=== PATIENT | female | born 1955 | race Caucasian/White ===

== ENCOUNTER 2016-08-28 22:21 | Emergency (ER) | payer OTHER ==
[2016-08-28 23:22] LABS: ABSOLUTE EOSINOPHILS # (AUTO) 0.1 10^3/uL (0.0-0.6); ABSOLUTE LYMPHOCYTES (AUTO) 1.4 10^3/uL (0.5-4.7); ABSOLUTE MONOCYTES (AUTO) 0.8 10^3/uL (0.1-1.4); ABSOLUTE NEUT (AUTO) 3.3 10^3/uL (1.7-8.2); BASOPHILS % (AUTO) 0.5 % (0-2); EOSINOPHILS % (AUTO) 1.8 % (0-6); HEMATOCRIT 40.5 % (36.0-47.0); HEMOGLOBIN 13.6 g/dL (12.0-15.5); HGB HCT DIFFERENCE 0.3; LYMPHOCYTES % (AUTO) 25.2 % (13-45); MEAN CORPUSCULAR HEMOGLOBIN 28.9 pg (27.0-33.4); MEAN CORPUSCULAR HGB CONC 33.7 g/dL (32.0-36.0); MEAN CORPUSCULAR VOLUME 86 fl (80-97); MONOCYTES % (AUTO) 14.2 % (3-13); RED BLOOD COUNT 4.73 10^6/uL (3.72-5.28); RED CELL DISTRIBUTION WIDTH 13.2 % (11.5-14.0); SEGMENTED NEUTROPHILS % (AUTO) 58.3 % (42-78); WHITE BLOOD COUNT 5.7 10^3/uL (4.0-10.5)
[2016-08-28 23:31] LABS: PARTIAL THROMBOPLASTIN TIME 25.8 SEC (23.5-35.8)
[2016-08-28 23:35] LABS: PROTHROMBIN TIME 12.9 SEC (11.4-15.4)
[2016-08-28 23:38] LABS: ALANINE AMINOTRANSFERASE 46 U/L (9-52); ALBUMIN 4.7 g/dL (3.5-5.0); ALKALINE PHOSPHATASE 102 U/L (38-126); ANION GAP 15 (5-19); ASPARTATE AMINO TRANSFERASE 41 U/L (14-36); BILIRUBIN,DIRECT 0.3 mg/dL (0.0-0.4); BILIRUBIN,TOTAL 0.6 mg/dL (0.2-1.3); BLOOD UREA NITROGEN 14 mg/dL (7-20); CARBON DIOXIDE 24 mmol/L (22-30); CHLORIDE 103 mmol/L (98-107); CREATININE RESULT 0.61 mg/dL (0.52-1.25); GLUCOSE 108 mg/dL (75-110); POTASSIUM 3.6 mmol/L (3.6-5.0); SODIUM 142.3 mmol/L (137-145); TOTAL PROTEIN 7.8 g/dL (6.3-8.2)
[2016-08-28 23:53] LABS: CREATINE KINASE MB 2.34 ng/mL (<4.55)
[2016-08-28 23:58] LABS: TROPONIN I < 0.012 ng/mL
--- NOTE | 2016-08-29 00:19 | ER Document Report ---
ED General - General Chief Complaint: Chest Pain > 30 Stated Complaint: HEART RATE ISSUES Time Seen by Provider: 08/28/16 23:15 Notes: Patient is a 60-year-old female with past medical history of hypertension and A. fib status post ablation who presents with an episode of palpitations tonight. She denies any associated symptoms and palpitations. She went to a local EMS station where he EKG apparently showed A. fib with rapid ventricular response. She was given diltiazem by EMS and at time of arrival to the emergency department she is in a normal sinus rhythm without tachycardia. At time of my evaluation she denies any symptoms of any kind. She has not spoken to her primary care or non clinical advisor regarding today's concerns. She has been taking her metoprolol as directed. She has not noted anything seems to trigger tonight's episode and denies any increased alcohol or caffeine use. States she did have one glass of wine tonight. TRAVEL OUTSIDE OF THE [place] IN LAST 30 DAYS: No - Related Data Allergies/Adverse Reactions: No Known Allergies Allergy (Verified 08/28/16 23:10) Past Medical History - General Information source: Patient - Social History Smoking Status: Never Smoker Chew tobacco use (# tins/day): No Frequency of alcohol use: Social Drug Abuse: None Lives with: Spouse/Significant other Family History: Reviewed & Not Pertinent Patient has suicidal ideation: No Patient has homicidal ideation: No - Past Medical History Cardiac Medical History: Reports: Hx Hypertension Renal/ Medical History: Denies: Hx Peritoneal Dialysis Past Surgical History: Reports: Hx Cardiac Surgery - ABLATION, Hx Hysterectomy - Immunizations Hx Diphtheria, Pertussis, Tetanus Vaccination: No Review of Systems - Review of Systems Notes: Constitutional: Negative for fever. HENT: Negative for sore throat. Eyes: Negative for visual changes. Cardiovascular: Negative for chest pain. Respiratory: Negative for shortness of breath. Gastrointestinal: Negative for abdominal pain, vomiting or diarrhea. Genitourinary: Negative for dysuria. Musculoskeletal: Negative for back pain. Skin: Negative for rash. Neurological: Negative for headaches, weakness or numbness. 10 point ROS negative except as marked above and in HPI. Physical Exam - Vital signs Vitals: Temp Pulse Resp BP Pulse Ox 98.7 F 82 16 138/80 H 100 08/28/16 22:25 08/28/16 22:25 08/28/16 22:25 08/28/16 22:25 08/28/16 22:25 Interpretation: Normal Notes: PHYSICAL EXAMINATION: GENERAL: Well-appearing, well-nourished and in no acute distress. HEAD: Atraumatic, normocephalic. EYES: Pupils equal round and reactive to light, extraocular movements intact, sclera anicteric, conjunctiva are normal. ENT: nares patent, oropharynx clear without exudates. Moist mucous membranes. NECK: Normal range of motion, supple without lymphadenopathy LUNGS: Breath sounds clear to auscultation bilaterally and equal. No wheezes rales or rhonchi. HEART: Regular rate and rhythm without murmurs ABDOMEN: Soft, nontender, normoactive bowel sounds. No guarding, no rebound. No masses appreciated. EXTREMITIES: Normal range of motion, no pitting or edema. No cyanosis. NEUROLOGICAL: No focal neurological deficits. Moves all extremities spontaneously and on command. PSYCH: Normal mood, normal affect. SKIN: Warm, Dry, normal turgor, no rashes or lesions noted. Course - Re-evaluation Re-evalutation: 08/29/16 00:36 Patient presents with an apparent episode of paroxysmal atrial fibrillation that is now resolved. At time of my assessment she has no symptoms whatsoever and has a normal sinus rhythm without tachycardia or need for rate control. Diltiazem drip was arrival was immediately discontinued and she was monitored for 2 hours off the drip without recurrence of A. fib or tachycardia. Labs were sent and do not demonstrate any abnormality in her troponin is negative. I do not clearly suspect ACS as the etiology of her presentation today did not believe serial troponins are indicated. I have given her symptoms of oral metoprolol here in the emergency department and have encouraged her to resume her standard medications in the morning. I have also encouraged her to contact her later clinical documentation developer and non clinical advisor regarding today's concerns.At this time will discharge with return precautions and follow-up recommendations. Verbal discharge instructions given a the bedside and opportunity for questions given. Medication warnings reviewed. Patient is in agreement with this plan and has verbalized understanding of return precautions and the need for primary care follow-up in the next 24-72 hours. - Vital Signs Vital signs: Temp Pulse Resp BP Pulse Ox 98.7 F 82 16 119/62 97 08/28/16 22:25 08/28/16 22:25 08/28/16 22:25 08/29/16 00:01 08/29/16 00:01 - Laboratory Result Diagrams: 08/28/16 22:45 08/28/16 22:45 Laboratory results interpreted by me: 08/28/16 08/28/16 22:45 22:45 Monocytes % 14.2 H AST 41 H - Diagnostic Test Radiology reviewed: Image reviewed, Reports reviewed Radiology results interpreted by me: 08/29/16 00:45 Chest x-ray: No infiltrate or pneumothorax - EKG Interpretation by Me Additional EKG results interpreted by me: 08/29/16 00:45 Normal sinus rhythm. Rate 76. No ST elevations or depressions. QTC is 422. Discharge - Discharge Clinical Impression: Paroxysmal atrial fibrillation Condition: Good Disposition: HOME, SELF-CARE Additional Instructions: Please continue to take your beta blockers and aspirin as prescribed. Please contact your non clinical advisor in the morning for follow-up regarding your episode of A. fib today that has since resolved. Please return to the emergency department immediately if you develop recurrence or palpitations, chest pain, pass out, have shortness of breath, or any other symptoms that are worrisome to you. Forms: Return to Work
[2016-08-29] MEDS ORDERED: METOPROLOL TARTRATE 25 MG TABLET PO ONE (00:36)
[2016-08-29 00:48] VITALS: BP 108/67
--- NOTE | 2016-08-29 17:18 | EKG REPORT ---
SEVERITY:- NORMAL ECG - SINUS RHYTHM : Confirmed by: Kathy Stubbs MD 29-Aug-2016 09:11:00
== END 2016-08-29 01:06 | disposition home or self-care (01) ==
LOC: ER 22:21
DX: I48.0 Paroxysmal atrial fibrillation (principal); I10 Essential (primary) hypertension; Z98.890 Other specified postprocedural states; Z79.899 Other long term (current) drug therapy
CPT/HCPCS: 36415; 71010; 80053; 82553; 84484; 85025; 85610; 85730; 93005; 93010; 99285

== ENCOUNTER 2016-10-07 15:20 | Emergency (ER) | payer OTHER ==
--- NOTE | 2016-10-07 16:24 | ER Document Report ---
ED Medical Screen (RME) - General Chief Complaint: Arrhythmia Stated Complaint: POSSIBLE ELEVATED HR Time Seen by Provider: 10/07/16 16:14 TRAVEL OUTSIDE OF THE [place] IN LAST 30 DAYS: No - HPI Notes: 10/07/16 16:24 Atrial fibrillation - Related Data Allergies/Adverse Reactions: No Known Allergies Allergy (Verified 08/28/16 23:10) Past Medical History - Past Medical History Cardiac Medical History: Reports: Hx Atrial Fibrillation, Hx Hypertension Renal/ Medical History: Denies: Hx Peritoneal Dialysis Past Surgical History: Reports: Hx Cardiac Surgery - ABLATION, Hx Hysterectomy - Immunizations Hx Diphtheria, Pertussis, Tetanus Vaccination: No Review of Systems - Review of Systems Constitutional: Other - Atrial fibrillation Physical Exam - Vital signs Vitals: Temp Pulse Resp BP Pulse Ox 98.4 F 150 H 20 164/101 H 20 L 10/07/16 15:39 10/07/16 15:39 10/07/16 15:39 10/07/16 15:39 10/07/16 15:39 - Respiratory Respiratory status: No respiratory distress Chest status: Nontender Breath sounds: Normal Chest palpation: Normal Course - Vital Signs Vital signs: Temp Pulse Resp BP Pulse Ox 98.4 F 150 H 20 164/101 H 20 L 10/07/16 15:39 10/07/16 15:39 10/07/16 15:39 10/07/16 15:39 10/07/16 15:39
[2016-10-07 16:34] LABS: ABSOLUTE BASOPHILS # (AUTO) 0.1 10^3/uL (0.0-0.2); ABSOLUTE EOSINOPHILS # (AUTO) 0.1 10^3/uL (0.0-0.6); ABSOLUTE LYMPHOCYTES (AUTO) 1.8 10^3/uL (0.5-4.7); ABSOLUTE MONOCYTES (AUTO) 0.9 10^3/uL (0.1-1.4); ABSOLUTE NEUT (AUTO) 4.4 10^3/uL (1.7-8.2); BASOPHILS % (AUTO) 0.7 % (0-2); EOSINOPHILS % (AUTO) 0.8 % (0-6); HEMATOCRIT 43.1 % (36.0-47.0); HEMOGLOBIN 14.4 g/dL (12.0-15.5); HGB HCT DIFFERENCE 0.1; LYMPHOCYTES % (AUTO) 24.9 % (13-45); MEAN CORPUSCULAR HGB CONC 33.4 g/dL (32.0-36.0); MEAN CORPUSCULAR VOLUME 87 fl (80-97); MONOCYTES % (AUTO) 12.3 % (3-13); RED BLOOD COUNT 4.96 10^6/uL (3.72-5.28); RED CELL DISTRIBUTION WIDTH 13.3 % (11.5-14.0); SEGMENTED NEUTROPHILS % (AUTO) 61.3 % (42-78); WHITE BLOOD COUNT 7.2 10^3/uL (4.0-10.5)
[2016-10-07 16:38] LABS: PROTHROMBIN TIME 13.7 SEC (11.4-15.4)
--- NOTE | 2016-10-07 16:43 | ER Document Report ---
ED Cardiac - General Chief Complaint: Arrhythmia Stated Complaint: POSSIBLE ELEVATED HR Time Seen by Provider: 10/07/16 16:14 Mode of Arrival: Ambulatory Information source: Patient TRAVEL OUTSIDE OF THE [place] IN LAST 30 DAYS: No - HPI Patient complains to provider of: Palpitations, Shortness of breath Use of: Caffeine - 1 COFFEE THIS A.M.. 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 denies: Diabetes, Smoker, Hx CHF, Hx [place] Positive cardiac history: Yes Associated symptoms: Shortness of breath Exacerbated by: Denies Relieved by: Nothing Similar symptoms previously: Yes - PAROXYSMAL A. FIB. W/RVR Recently seen / treated by doctor: Yes - LAST MONTH - Related Data Allergies/Adverse Reactions: No Known Allergies Allergy (Verified 08/28/16 23:10) Past Medical History - General Information source: Patient - Social History Smoking Status: Never Smoker Cigarette use (# per day): No Chew tobacco use (# tins/day): No Frequency of alcohol use: Occasional Drug Abuse: None Lives with: Family Family History: Reviewed & Not Pertinent Patient has suicidal ideation: No Patient has homicidal ideation: No - Past Medical History Cardiac Medical History: Reports: Hx Atrial Fibrillation, Hx Hypertension Pulmonary Medical History: Reports: None EENT Medical History: Reports: None Neurological Medical History: Reports: None Endocrine Medical History: Reports: None Renal/ Medical History: Reports: None. Denies: Hx Peritoneal Dialysis Malignancy Medical History: Reports: None GI Medical History: Reports: None Musculoskeltal Medical History: Reports None Psychiatric Medical History: Reports: None Past Surgical History: Reports: Hx Cardiac Surgery - ABLATION, Hx Hysterectomy - Immunizations Hx Diphtheria, Pertussis, Tetanus Vaccination: No Review of Systems - Review of Systems Constitutional: No symptoms reported EENT: No symptoms reported Cardiovascular: See HPI Respiratory: See HPI Gastrointestinal: No symptoms reported Genitourinary: No symptoms reported Musculoskeletal: No symptoms reported Skin: No symptoms reported Neurological/Psychological: No symptoms reported Physical Exam - Vital signs Vitals: Temp Pulse Resp BP Pulse Ox 98.4 F 150 H 20 164/101 H 20 L 10/07/16 15:39 10/07/16 15:39 10/07/16 15:39 10/07/16 15:39 10/07/16 15:39 Interpretation: Hypertensive, Tachycardic - General General appearance: Appears well, Alert, Anxious In distress: None - HEENT Head: Normocephalic Eyes: Normal Conjunctiva: Normal Ears: Normal Nasal: Normal Mouth/Lips: Normal Mucous membranes: Normal Pharynx: Normal Neck: Normal. No: Thyromegally - Respiratory Respiratory status: No respiratory distress Breath sounds: Normal - Cardiovascular Rhythm: Regular - ARRHYTHMIA HAD CONVERTED SPONTANEOUSLY BY TIME OF M.D. EXAM. Heart sounds: Normal auscultation Murmur: No - Abdominal Inspection: Normal Distension: No distension - Back Back: Normal - Extremities General upper extremity: Normal inspection General lower extremity: Normal inspection - Neurological Neuro grossly intact: Yes Cognition: Normal Orientation: AAOx4 - Psychological Associated symptoms: Normal affect, Normal mood - Skin Skin Temperature: Warm Skin Moisture: Dry Skin Color: Normal Skin Turgor: Elastic Course - Re-evaluation Re-evalutation: 10/07/16 17:52 Patient's arrhythmia converted spontaneously shortly after her arrival to the emergency department. Repeat EKG shows returned to normal sinus rhythm with a normal rate. - Vital Signs Vital signs: Temp Pulse Resp BP Pulse Ox 98.4 F 150 H 12 180/148 H 98 10/07/16 15:39 10/07/16 15:39 10/07/16 17:01 10/07/16 17:01 10/07/16 17:01 - Laboratory Result Diagrams: 10/07/16 16:15 10/07/16 16:15 Laboratory results interpreted by me: 10/07/16 16:15 Carbon Dioxide 21 L AST 42 H Alkaline Phosphatase 128 H Creatine Kinase 281 H Total Protein 8.5 H Albumin 5.1 H - EKG Interpretation by Mn EKG shows normal: abnormal: Sinus rhythm, ST-T Waves - REPOL. ABNL., RATE- RELATED Rate: Tachycardia Rhythm: A.Fib, PVC's, APC's [place]/QRS: Right axis deviation Discharge - Discharge Clinical Impression: Tachycardia Atrial fibrillation Qualifiers: Atrial fibrillation type: paroxysmal Qualified Code(s): I48.0 - Paroxysmal atrial fibrillation Condition: Stable Disposition: HOME, SELF-CARE Instructions: Atrial Fibrillation ([facility]), Beta Blockers ([facility]) Additional Instructions: AVOID ALL STIMULANTS, INCLUDING CAFFEINE. INCREASE YOUR METOPROLOL TO 25 mg TWICE A DAY. CONTINUE YOUR OTHER MEDS USUAL. FOLLOW UP WITH YOUR [facility] DISPLAY BUILDER, CALL TOMORROW FOR APPT. RETURN TO E.R. IF PROBLEMS, ANY TIME.
[2016-10-07 16:54] LABS: ALANINE AMINOTRANSFERASE 49 U/L (9-52); ALBUMIN 5.1 g/dL (3.5-5.0); ALKALINE PHOSPHATASE 128 U/L (38-126); ANION GAP 15 (5-19); ASPARTATE AMINO TRANSFERASE 42 U/L (14-36); BILIRUBIN,DIRECT 0.3 mg/dL (0.0-0.4); BILIRUBIN,TOTAL 0.8 mg/dL (0.2-1.3); BLOOD UREA NITROGEN 17 mg/dL (7-20); CALCIUM 10.2 mg/dL (8.4-10.2); CARBON DIOXIDE 21 mmol/L (22-30); CHLORIDE 105 mmol/L (98-107); CREATINE KINASE 281 U/L (30-135); CREATININE RESULT 0.65 mg/dL (0.52-1.25); GLUCOSE 109 mg/dL (75-110); SODIUM 141.4 mmol/L (137-145); TOTAL PROTEIN 8.5 g/dL (6.3-8.2)
[2016-10-07 17:06] LABS: CREATINE KINASE MB 2.71 ng/mL (<4.55)
--- NOTE | 2016-10-07 17:06 | RADIOLOGY REPORT (SQ) ---
EXAM DESCRIPTION: CHEST SINGLE VIEW COMPLETED DATE/TIME: 10/07/2016 4:49 pm REASON FOR STUDY: chest pain COMPARISON: 08/28/2016 EXAM PARAMETERS: NUMBER OF VIEWS: One view. TECHNIQUE: Single frontal radiographic view of the chest acquired. RADIATION DOSE: NA LIMITATIONS: None. FINDINGS: LUNGS AND PLEURA: No opacities, masses or pneumothorax. No pleural effusion. MEDIASTINUM AND HILAR STRUCTURES: No masses. Contour normal. HEART AND VASCULAR STRUCTURES: Heart normal in size. Normal vasculature. BONES: No acute findings. HARDWARE: None in the chest. OTHER: No other significant finding. IMPRESSION: NO ACUTE RADIOGRAPHIC FINDING IN THE CHEST. TECHNICAL DOCUMENTATION: JOB ID: [id number]
[2016-10-07 17:16] LABS: TROPONIN I < 0.012 ng/mL
[2016-10-07] MEDS ORDERED: METOPROLOL SUCCINATE 25 MG TAB.SR.24H PO ONE (17:47)
[2016-10-07 18:11] VITALS: BP 148/83
--- NOTE | 2016-10-07 22:42 | EKG REPORT ---
SEVERITY:- NORMAL ECG - SINUS RHYTHM : Confirmed by: Meme Solorzano 07-Oct-2016 22:42:04
--- NOTE | 2016-10-07 22:43 | EKG REPORT ---
SEVERITY:- ABNORMAL ECG - ATRIAL FIBRILLATION MULTIPLE PREMATURE COMPLEXES, VENT BORDERLINE RIGHT AXIS DEVIATION REPOLARIZATION ABNORMALITY, PROB RATE RELATED : Confirmed by: Meme Solorzano 07-Oct-2016 22:43:01
== END 2016-10-07 18:05 | disposition home or self-care (01) ==
LOC: ER 15:20
DX: I48.0 Paroxysmal atrial fibrillation (principal); R00.0 Tachycardia, unspecified; I49.3 Ventricular premature depolarization; I49.1 Atrial premature depolarization; R06.02 Shortness of breath; I10 Essential (primary) hypertension
CPT/HCPCS: 36415; 71010; 80053; 82550; 82553; 83735; 84443; 84484; 85025; 85610; 93005; 93010; 99285

== ENCOUNTER → 2017-05-17 | Outpatient (CLI) | payer OTHER ==
--- NOTE | 2017-05-17 12:41 | WOMENS IMAGING REPORT ---
EXAM DESCRIPTION: BILAT SCREENING MAMMO W/CAD COMPLETED DATE/TIME: 05/17/2017 8:59 am REASON FOR STUDY: ROUTINE SCREENING; Z12.31 Z12.31 ENCNTR SCREEN MAMMOGRAM FOR MALIGNANT NEOPLASM O F ROSITA COMPARISON: None. TECHNIQUE: Standard craniocaudal and mediolateral oblique views of each breast recorded using [employer] l acquisition. LIMITATIONS: None. FINDINGS: No masses, calcifications or architectural distortion. No areas of suspicion. Read with the assistance of CAD. .[facility] - R2 [employer] Version 1.3 .[facility] Imaging - R2 [employer] Version 1.3 .[facility] Imaging - R2 Cen[employer] Version 2.4 .[facility] [place] - R2 Cenova Version 2.4 .[facility] - R2 [employer] Version 9.2 IMPRESSION: NORMAL MAMMOGRAM. BIRADS 1. BREAST DENSITY: b. There are scattered areas of fibroglandular density. BIRAD: 1 NEGATIVE RECOMMENDATION: ROUTINE SCREENING COMMENT: The patient has been notified of the results by letter per SA requirements. Additional no tification policies are in place for contacting patient with suspicious or incomplete findings. Quality ID #[id number]: The [employer] recommends an annual screening mammogram for women aged 40 years or over. This facility utilizes a reminder system to ensure that all patients receive reminder letters, and/or direct phone calls for appointments. This includes reminders for routine scr eening mammograms, diagnostic mammograms, or other Breast Imaging Interventions when appropriate. Th is patient will be placed in the appropriate reminder system. The [employer] (ACR) has developed recommendations for screening MRI of the breast s in certain patient populations, to be used in conjunction with mammography. Breast MRI surveillanc e may be appropriate for women with more than 20% lifetime risk of developing breast cancer as deter mined by genetic testing, significant family history of the disease, or history of mantle radiation f or Hodgkins Disease. ACR Practice Guidelines 2008. TECHNICAL DOCUMENTATION: FINDING NUMBER: (1) ASSESSMENT: (1) JOB ID: [id number] [employer]- All Rights Reserved
== END ==
LOC: WI 08:34
PROVIDERS: ATTEND Physician Assistant
DX: Z12.31 Encounter for screening mammogram for malignant neoplasm of breast (principal)
CPT/HCPCS: 77067

== ENCOUNTER → 2019-01-14 | Outpatient (CLI) | payer MEDICARE, OTHER ==
--- NOTE | 2019-01-14 15:03 | WOMENS IMAGING REPORT ---
EXAM DESCRIPTION: BILAT SCREENING MAMMO W/CAD COMPLETED DATE/TIME: 01/14/2019 2:24 pm REASON FOR STUDY: Z12.31 SCREENING MAMMO Z12.31 ENCNTR SCREEN MAMMOGRAM FOR MALIGNANT NEOPLASM OF B RE COMPARISON: 2014, 2017 EXAM PARAMETERS: Standard craniocaudal and mediolateral oblique views of each breast recorded using digital acquisition. Read with the assistance of CAD. 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 FINDINGS: No suspicious masses, suspicious calcifications or architectural distortion. No areas of c oncern. IMPRESSION: Negative MAMMOGRAM. BIRADS 1 BREAST DENSITY: b. There are scattered areas of fibroglandular density. BIRAD: ASSESSMENT: 1 NEGATIVE RECOMMENDATION: ROUTINE SCREENING COMMENT: The patient has been notified of the results by letter per MQSA requirements. Additional no tification policies are in place for contacting patient with suspicious or incomplete findings. Quality ID #[id number]: The [employer] recommends an annual screening mammogram for women aged 40 years or over. This facility utilizes a reminder system to ensure that all patients receive reminder letters, and/or direct phone calls for appointments. This includes reminders for routine scr eening mammograms, diagnostic mammograms, or other Breast Imaging Interventions when appropriate. Th is patient will be placed in the appropriate reminder system. TECHNICAL DOCUMENTATION: FINDING NUMBER: (1) ASSESSMENT: (1) JOB ID: [id number] [employer]- All Rights Reserved Reading location - IP/workstation name: [email or web address]
== END ==
LOC: WI 14:10
PROVIDERS: ATTEND Physician Assistant
DX: Z12.31 Encounter for screening mammogram for malignant neoplasm of breast (principal)
CPT/HCPCS: 77067